=== PATIENT | female | born 1990 ===

== ENCOUNTER → 2024-04-13 10:38 | Outpatient (AMB) | payer OTHER, SELFPAY ==
--- NOTE | 2024-04-13 10:47 | AM.OFFWIN_ITS ---
Intake Vital Signs 04/13/24 10:48 Height 5 ft 1 in Weight 142 lb 6 oz BMI 26.9 BP 100/60 Blood Pressure Location Rt brachial Position Sitting Pulse 74 Pulse Source Pulse Oximeter Pulse Oximetry (%) 99 Oxygen Delivery Method Room Air Intake Visit Reasons: Would like to talk about possible yeast infection. Intake Note: Patient is here today for a possible yeast infection. Symptoms are burning, itch, frequency and pain on left side of pelvic. Patient Tobacco Use Status: Never used Tobacco Laundry Housekeeping Aide Required: No Night Monitor: Not Required per policy Accompanied by: Self / Same As Patient Allergies No Known Allergies Allergy (Verified 04/13/24 11:10) Medication List - Last Reconciled 04/13/24 by Rocio Noel, [facility]- albuterol sulfate 90 mcg/actuation 1 puff inhalation ONCE PRN budesonide-formoterol 80-4.5 mcg/actuation (Symbicort) 2 inhalations inhalation DAILY Do you need a note to return to daycare/school/sports/work: No HPI HPI Comments History of Present Illness Details 33 y/o F here today w/ concern for yeast infection Sx started this after completion of last menses. Severe Itching, burning pain in LLQ, Mild white discharge, nonodorous, vaginal tissue pain & inflammation Reports normal urination Denies fever, chills, hematuria, abt use, diabetes. LMP 1 week ago, no chance for . Last yeast infection about 5-6 months ago. Treated w/ vaginal supp with + effect in [place]. Active w/ PCP Connie Sheldon. Exam: Awake alert oriented, no acute distress Mucous membranes moist Regular rate and rhythm No CVAT bilat Mild tenderness over left lower quadrant with deep palpation without rebound Plan: Unable to produce urine at time of visit. She is not worried about UTI. Declines exam or BV swab. Active w/ COMMISSIONED FIRE OFFICER, first appt 05/02/24 Empirically tx for yeast w/ fluconazole x 2, external cortisone for relief Advised that if her symptoms persist after this treatment, she needs to follow up with design printer balloon and or her primary care. This note is constructed using voice recognition software. While every effort has been made to ensure accuracy in patient financial specialist, still errors may have been included Sometimes, these errors may affect the content or meaning of the given sentence . PFSH Social History Patient Tobacco Use Status: Never used Tobacco Physical Exam Vital Signs: Last Vital Signs Pulse 74 04/13/24 10:48 BP 100/60 04/13/24 10:48 Pulse Ox 99 04/13/24 10:48 Oxygen Delivery Method Room Air 04/13/24 10:48 BMI result Body Mass Index 26.9 Assessment & Plan Assessment & Plan (1) Vaginal itching: Code(s): N89.8 - Other specified noninflammatory disorders of vagina Plan: . (2) Left lower quadrant pain: Code(s): R10.32 - Left lower quadrant pain Plan: . (3) Yeast infection of the vagina: Code(s): B37.31 - Acute candidiasis of vulva and vagina Plan: . Medications: New fluconazole take 1 tab day 1, repeat second dose on day 3 150 mg PO Q3D 2 tabs 0RF hydrocortisone 1% (Monistat Care (hydrocortisone)) 1 appl topical TID PRN 28.4 grams 0RF skin irritation Coding Level of Care Code Est Pt Level 3 (03754) Diagnoses Vaginal itching N89.8 Left lower quadrant pain R10.32 Yeast infection of the vagina B37.31
[2024-04-13 10:48] VITALS: BP 100/60; PULSE 74; O2SAT 99; BMI 26.9
== END ==
PROVIDERS: PCP Nurse Practitioner Family; Visit Provider Nurse Practitioner Family
DX: N89.8 Other specified noninflammatory disorders of vagina (principal); R10.32 Left lower quadrant pain; B37.31 Acute candidiasis of vulva and vagina
CPT/HCPCS: 99213

== ENCOUNTER 2024-05-28 22:11 | Emergency (ER) | payer OTHER, SELFPAY ==
[2024-05-28 22:23] VITALS: BP 123/78; PULSE 61; RESP 16; TEMP 36.5; O2SAT 100; BMI 24.2
[2024-05-28 22:48] LABS: MANUAL DIFF FLAG NO
[2024-05-28 22:50] LABS: Appearance Urine Cloudy; Color Urine Dark Yellow; Glucose Urine UA Negative (Negative); Leukocyte Esterase Urine Small (1+) (Negative); Nitrite Urine Negative (Negative); Specific Gravity - Urine >= 1.030 (1.005-1.025); UMIC TRIGGER UACC YES; Urine Blood Negative (Negative); Urine Ketones >=160 mg/dL (Negative); Urine Protein 30 (1+) mg/dL (Neg-Trace)
[2024-05-28 22:51] LABS: Basophils Absolute Auto 0.1 X10*3/uL (0.0-0.2); Basophils Percent Auto 0.5 % (0-2); Eosinophils Absolute Auto 0.2 X10*3/uL (0.0-0.4); Eosinophils Percent Auto 1.3 % (0-4); Hematocrit 37.1 % (37.0-47.0); Hemoglobin 12.1 g/dl (12.0-16.0); Imm Gran Abs Auto 0.06 X10*3/uL (0.00-0.03); Imm Gran Pct Auto 0.5 % (0.0-0.4); Lymphocytes Absolute Auto 2.2 X10*3/uL (1.2-4.9); Lymphocytes Percent Auto 18.9 % (20-40); Mean Corpuscular HGB Conc 32.6 g/dl (31.0-35.0); Mean Platelet Volume 10.6 fL (9.4-12.3); Monocytes Absolute Auto 0.9 X10*3/uL (0.1-1.2); Monocytes Percent Auto 7.4 % (2-11); Neutrophils Absolute Auto 8.3 x10*3/uL (2.0-8.3); Neutrophils Percent Auto 71.4 % (45-73); Platelet Count 364 X10*3/uL (160-400); Red Blood Count 6.04 X10*6/uL (4.20-5.50); White Blood Count 11.7 X10*3/uL (4.8-10.8)
[2024-05-28 22:52] LABS: Mean Corpuscular Volume 61.4 fL (80.0-98.0)
[2024-05-28 23:00] LABS: Bacteria Urine 4+ (None Seen); Hyaline Casts Urine 0-2 /LPF (0-2); RBC Urine 0-2 /HPF (0-2); UACC Culture Trigger YES; WBC Urine 0-5 /HPF (0-5)
[2024-05-28 23:08] LABS: Anion Gap 14 (12-20); Blood Urea Nitrogen 11 mg/dL (9-16); Calcium 9.9 mg/dL (8.4-10.2); Carbon Dioxide 21 mmol/L (22-29); Chloride 105 mmol/L (96-108); Creatinine Clr Calc Pharmacy 98.9; Estimated Glomerular Filt Rate > 60; Glucose Random 81 mg/dL (60-115); Potassium 3.8 mmol/L (3.3-5.1); Sodium 136 mmol/L (135-145)
[2024-05-28 23:28] LABS: HCG Quantitative 155459 mIU/mL
--- NOTE | 2024-05-29 00:36 | ED.GENADULT ---
HPI - General Adult General Chief complaint: Nausea/Vomiting/Diarrhea Stated complaint: vomiting 8 wks Time Seen by Provider: 05/29/24 00:36 History of Present Illness ED Provider: Josh PRITCHARD narrative: The patient is a 33-year-old female who is with her 1st . She estimates she is approximately 7 weeks . She is getting her OBGYN care through a [facility] practice in [place]. She says that she has had a lot of nausea associated with the and was originally prescribed doxylamine and pyridoxine. Over the last few days her symptoms have gotten worse. She has had increased nausea and vomiting over the last 3 or 4 days. She complains of epigastric discomfort and some chest discomfort that she attributes to the vomiting. No fever. no lower abdominal pain or concerns about the otherwise. Related Data Home Medications ?Medication ?Instructions ?Recorded ?Confirmed albuterol sulfate 90 mcg/actuation 1 puff inhalation ONCE PRN 04/13/24 04/13/24 aerosol inhaler budesonide-formoterol HFA 80 2 inh inhalation DAILY 04/13/24 04/13/24 mcg-4.5 mcg/actuation aerosol inhaler (Symbicort) Previous Rx's ?Medication ?Instructions ?Recorded fluconazole 150 mg tablet 150 mg PO Q3D 2 doses #2 tabs 04/13/24 hydrocortisone 1 % topical cream 1 appl topical TID PRN skin 04/13/24 (Monistat Care (hydrocortisone)) irritation #28.4 grams metoclopramide HCl 10 mg tablet 10 mg PO Q6H PRN nausea and 05/29/24 vomiting #10 tabs Allergies Allergy/AdvReac Type Severity Reaction Status Date / Time No Known Allergies Allergy Verified 05/28/24 22:25 Review of Systems Review of Systems: Yes all other systems are reviewed and are negative PMFSH Social History Social History Patient Tobacco Use Status: Never used Tobacco Smoked in Last 30 Days: No Use of substances other than those prescribed or required for medical reasons: No Advance Directives: No Patient : Yes Physical Exam ED Vital Signs: Vital Signs - 24 hr 05/28/24 22:23 05/29/24 02:41 05/29/24 02:43 Temperature 97.7 F 98.9 F 98.9 F Pulse Rate 61 91 91 Respiratory Rate 16 16 16 Blood Pressure 123/78 100/60 100/60 Pulse Oximetry 100 99 99 Oxygen Delivery Method Room Air Room Air Room Air BMI result Body Mass Index 24.2 Const Other: The patient is awake and alert. She looks somewhat pale and mildly unwell but not in distress. HENMT Other: Face is symmetrical. Mucous membranes Do not seem significantly dry. Eyes General: appearance normal, both eyes and all related structures Neck Other: Moving her neck easily. Resp Effort & Inspection: normal respiratory effort Auscultation: clear to auscultation bilaterally Cardio Rate: regular rate Rhythm: regular rhythm Heart sounds: S1 normal heart sound present and S2 normal heart sound present GI Other: The abdomen is flat and soft. There is some mild epigastric tenderness but no other significant abdominal tenderness. No lower abdominal tenderness. Skin Other: Skin is pale and dry. Neuro Other: The patient is awake alert with normal mental status. Cranial nerves grossly intact. She moves her extremities normally. She seems neurologically intact. Extrem Other: No peripheral edema Medications Administered Discontinued Medications Generic Name Dose Route Start Last Admin Trade Name Freq PRN Reason Stop Dose Admin Diphenhydramine HCl 25 mg 05/29/24 00:40 05/29/24 01:02 Diphenhydramine Hcl 50 Mg/Ml Vial IVPUSH 05/29/24 00:41 25 mg ONCE ONE Administration Sodium Chloride 1,000 mls @ 999 mls/hr 05/29/24 00:45 05/29/24 02:06 Ns IV 05/29/24 01:45 Infused .Q1H1M SUSANNA Infusion Metoclopramide HCl 10 mg 05/29/24 00:40 05/29/24 01:02 Metoclopramide Hcl 10 Mg/2 Ml Vial IVPUSH 05/29/24 00:41 10 mg ONCE ONE Administration Medical Decision Making Medical Decision Making [facility] Narrative: the patient is a 33-year-old female who is with her 1st . She reports that she is approximately 7 weeks . She has her OB care through a [facility] [place] practice in [place]. She has had problems with nausea and indicates that she has been advised to use doxylamine and pyridoxine and most recently ondansetron. Despite these medications she has had worsening nausea over the last few days and came to the emergency room. she describes some epigastric discomfort and chest discomfort that she attributes to the vomiting. She denies any lower abdominal discomfort or any significant vaginal discharge. Clinically this seems to be a case of associated nausea vomiting. Her labs are unremarkable. Her beta hCG is 155,00. her history does not suggest a likely threatened miscarriage or ectopic . Her urinalysis is mildly abnormal but without distinct symptoms of a UTI I would wait for urine culture before treatment. The patient was treated with IV fluids, diphenhydramine, and metoclopramide. She felt better. She was at the tolerate oral intake. She will be discharged with recommendations to use diphenhydramine or dimenhydrinate [id number]. I have also provided a prescription for metoclopramide if necessary. She has an appointment with her obstetrical provider in 2 days. Lab Data 05/28/24 22:40 05/28/24 22:40 Labs: Lab Results 05/28/24 05/28/24 Range/Units 22:40 22:43 WBC 11.7 H (4.8-10.8) X10*3/uL RBC 6.04 H (4.20-5.50) X10*6/uL Hgb 12.1 (12.0-16.0) g/dl Hct 37.1 (37.0-47.0) % MCV 61.4 L (80.0-98.0) fL MCH 20.0 L (27.0-33.0) pg MCHC 32.6 (31.0-35.0) g/dl RDW 18.0 H (11.0-16.0) % Plt Count 364 (160-400) X10*3/uL MPV 10.6 (9.4-12.3) fL Immature Gran % (Auto) 0.5 H (0.0-0.4) % Neut % (Auto) 71.4 (45-73) % Lymph % (Auto) 18.9 L (20-40) % [place] % (Auto) 7.4 (2-11) % Eos % (Auto) 1.3 (0-4) % Baso % (Auto) 0.5 (0-2) % Lymph # (Auto) 2.2 (1.2-4.9) X10*3/uL [place] # (Auto) 0.9 (0.1-1.2) X10*3/uL Eos # (Auto) 0.2 (0.0-0.4) X10*3/uL Baso # (Auto) 0.1 (0.0-0.2) X10*3/uL Abs Immat Gran (auto) 0.06 H (0.00-0.03) X10*3/uL Absolute Neuts (auto) 8.3 (2.0-8.3) x10*3/uL Absolute Nucleated RBC 0.000 (0.0-0.012) X10*3/uL Nucleated RBC % (auto) 0.0 (0.0-0.2) /100WBC Sodium 136 (135-145) mmol/L Potassium 3.8 (3.3-5.1) mmol/L Chloride 105 (96-108) mmol/L Carbon Dioxide 21 L (22-29) mmol/L Anion Gap 14 (12-20) BUN 11 (9-16) mg/dL Creatinine 0.64 (0.5-1.4) mg/dL Estim Creat Clear Calc 98.9 Estimated GFR > 60 Random Glucose 81 (60-115) mg/dL Calcium 9.9 (8.4-10.2) mg/dL Beta HCG, Quant 953603 mIU/mL Urine Color Dark Yellow Urine Appearance Cloudy Urine pH 6.0 (5.0-9.0) Ur Specific [place] >= 1.030 H (1.005-1.025) Urine Protein 30 (1+) H (Neg-Trace) mg/dL Urine Glucose (UA) Negative (Negative) mg/dL Urine Ketones >=160 (Negative) mg/dL Urine Blood Negative (Negative) Urine Nitrite Negative (Negative) Ur Leukocyte Esterase Small (1+) H (Negative) Urine RBC 0-2 (0-2) /HPF Urine WBC 0-5 (0-5) /HPF Ur Squamous Epith Cells 6-10 (0-2) /HPF Urine Bacteria 4+ (None Seen) Hyaline Casts 0-2 (0-2) /LPF Discharge Plan Discharge Clinical Impression: related nausea and vomiting, antepartum, 7 weeks gestation of Patient Disposition: Home, Self-Care Instructions: Nausea and Vomiting in (ED) Additional Instructions: To try to manage any ongoing nausea you may purchase [id number]-[id number] medications that may be helpful. Dramamine (dimenhydrinate) can be helpful. A similar medication is diphenhydramine (Benadryl). Both of these medications are considered safe in . You may try 1 or the other. These medications may make you sleepy. I would start with 25 mg of either of these medications to see if they are helpful. I have also sent a prescription for a different nausea medication, metoclopramide which you may use if you do not feel that Dramamine or Benadryl is helpful. Please keep your obstetrical appointment on Thursday as scheduled. You may discuss these symptoms with your obstetrical provider. Return to the emergency room if significantly worse. Prescriptions: New metoclopramide HCl 10 mg tablet 10 mg PO Q6H PRN (Reason: nausea and vomiting) Qty: 10 0RF No Action budesonide-formoterol [Symbicort] 80-4.5 mcg/actuation HFA aerosol inhaler 2 inh inhalation DAILY albuterol sulfate 90 mcg/actuation HFA aerosol inhaler 1 puff inhalation ONCE PRN fluconazole 150 mg tablet 150 mg PO Q3D Qty: 2 0RF Rx Instructions: take 1 tab day 1, repeat second dose on day 3 hydrocortisone [Monistat Care (hydrocortisone)] 1 % cream 1 appl topical TID PRN (Reason: skin irritation) Qty: 28.4 0RF Interventions: ED Discharge Assessment Last Done: 05/29/24 02:43 Discharge Date/Time: 05/29/24 02:43 Print Language: Maltese
[2024-05-29] MEDS: diphenhydrAMINE HCL 50 MG/ML VIAL 25 MG IVPUSH (01:02)
[2024-05-29] MEDS: 0.9 % Sodium Chloride 1,000 ML 999 ML IV (01:02)
[2024-05-29] MEDS: Metoclopramide HCl 10 MG/2 ML VIAL IVPUSH (01:02)
--- NOTE | 2024-05-29 01:09 | PC.NURSE ---
this rn assumed care of pt, pt a&ox4, respirations even and unlabored. pt reporting onset of nausea and vomiting x4 days, reports being 7 weeks at this time. pt reports being seen by OB and given zofran which has not allowed any relief.
--- NOTE | 2024-05-29 01:52 | PC.NURSE ---
22G placed in right hand, fluids administered, pt medicated per oct.
[2024-05-29 02:41] VITALS: BP 100/60; PULSE 91; RESP 16; TEMP 37.2; O2SAT 99
[2024-05-29 02:43] VITALS: BP 100/60; PULSE 91; RESP 16; TEMP 37.2; O2SAT 99
== END 2024-05-29 02:43 | disposition home or self-care (01) ==
PROVIDERS: Emergency Provider Emergency Medicine; PCP Nurse Practitioner Family
DX: O26.891 Other specified pregnancy related conditions, first trimester (principal); R11.2 Nausea with vomiting, unspecified; Z3A.01 Less than 8 weeks gestation of pregnancy
CPT/HCPCS: 36415; 80048; 81001; 84702; 85025; 87086; 96361; 96374; 96375; 99284; J1200; J2765

== ENCOUNTER 2025-01-03 14:54 | Outpatient (AMB) | payer OTHER, SELFPAY ==
--- NOTE | 2025-01-03 14:57 | A.OFFPC_ITS ---
Vital Signs 01/03/25 14:59 Height 5 ft 0.63 in Weight 142 lb 1 oz BMI 27.2 BP 90/72 Blood Pressure Location Rt brachial Position Sitting Respiration 12 Pulse 69 Pulse Source Pulse Oximeter Pulse Oximetry (%) 99 Oxygen Delivery Method Room Air Intake Visit Reasons: Pls keep appt -est care Intake Note: New patient visit Reservoir Engineering Manager Required: Yes Reservoir Engineering Manager Language: Croatian Reservoir Engineering Manager Name: Alysa [id number] Accompanied by: Child Allergies No Known Allergies Allergy (Verified 01/03/25 14:57) Tobacco use date assessed: 01/03/25 Dental Screening Dental Screen Date: 01/03/25 Did you have a dental visit in the last 12 months?: No Did you have a dental problem in the last 6 months where you did not have access to dental care?: No Was dental information given to patient?: Patient declined HPI HPI Comments History of Present Illness Details 33 y/o female with a past medical histor y of asthma, Transferring from Has one month old premature child-born at 33 weeks. Things are going well. She was anemic during the did not have repeat. Continues to have frequent urge to urinate, says that glucose was normal during . She did have a yeast infection in the fall. She denies pruritus. She does endorse lower abdominal discomfort. Endorses thoracic back pain after standing for long periods of time, cooking etc. 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 ROS see HPI PHYSICAL EXAM: GENERAL: Alert and oriented x 3. NAD EYES: EOMI. Anicteric. HENT: Moist mucous membranes. No scleral icterus. No cervical lymphadenopathy. LUNGS: Clear to auscultation bilaterally. CARDIOVASCULAR: Regular rate and rhythm. No murmur. No JVD. ABDOMEN: Soft, non-tender +bs EXTREMITIES: No edema. Non-tender. SKIN: No rashes or lesions. Warm. NEUROLOGIC: No focal neurological deficits. CN II-XII grossly intact PSYCHIATRIC: Cooperative. Appropriate mood and affect [facility] Surgical History (Updated 01/03/25 @ 16:23 by Crys Hernandez CMA) No pertinent past surgical history Family History (Updated 01/03/25 @ 16:23 by Crys Hernandez CMA) Father HTN (hypertension) Social History (Updated 01/03/25 @ 16:25 by Crys Hernandez CMA) Housing: Apartment Alcohol intake: never Patient Tobacco Use Status: Never used Tobacco e-Cigarette/Vaping Use: Never Used Second Hand Smoke Exposure: No Use of substances other than those prescribed or required for medical reasons: No service: No Current occupational status: unemployed Cognitive needs: No Hearing needs: No Vision needs: No Questionnaire PHQ-9 Over the last 2 weeks, how often have you been bothered by any of the following problems? 1. Little interest or pleasure in doing things: not at all 2. Feeling down, depressed, or hopeless: not at all 3. Trouble falling or staying asleep, or sleeping too much: not at all 4. Feeling tired or having little energy: several days 5. Poor appetite or overeating: not at all 6. Feeling bad about yourself - or that you are a failure or have let yourself or your family down: not at all 7. Trouble concentrating on things, such as reading the newspaper or watching television: not at all 8. Moving or speaking so slowly that other people could have noticed. Or the opposite - being so fidgety or restless that you have been moving around a lot more than usual: not at all 9. Thoughts that you would be better off or of hurting yourself in some way: not at all Total score: 1 Depression Screening Interpretation: Negative Depression Screening Done: Yes 20380 - PHQ-9 Billing: Yes Source: Developed by Drs. Kaushal Aguirre, Alesia Paulino, Jayant Iglesias and colleagues, with an educational rossy from [employer]. Thrive Questionnaire Date Thrive assessed: 01/03/25 I am a: Patient What is your living situation today?: I have a steady place to live Within the past 12 months, did the food you bought not last and you didn't have the money to get more?: Never true Within the past 12 months, did you worry whether your food would run out before you got money to buy more?: Never true Do you have trouble paying for medicines?: No Do you have trouble getting transportation to medical appointments?: No Do you have trouble paying your heating and electricity bill?: No Do you have trouble taking care of your child, family member or friend?: No Do you have trouble with day-to-day activities such as bathing, preparing meals, shopping, managing finances, etc.?: No Are you currently unemployed and looking for a job?: No Are you interested in more education?: No Please select the resources that you would like help with: None Currently or been in a relationship where the following occur: No concerns reported THRIVE Score: 0 AUDIT C Alcohol Use Questionnaire (AUDIT-C) 1. How often do you have a drink containing alcohol?: Never 3. How often do you have six or more drinks on one occasion?: Never Total Score: 0 ONEL-7 AMB Questionnaire ONEL-7 Date ONEL - 7 assessed: 01/03/25 Feeling nervous, anxious, or on edge: 0 = Not at all Not being able to stop or control worryin = Not at all Worrying too much about different things: 0 = Not at all Trouble relaxin = Not at all Being so restless that it is hard to sit still: 0 = Not at all Becoming easily annoyed or irritable: 0 = Not at all Source: Developed by Drs. Kaushal Aguirre, Alesia Paulino, Jayant Iglesias and colleagues, with an educational rossy from [employer]. ONEL-7 Assessment Billing ONEL-7 Assessment Tool: ONEL-7 Assessment 93821 ACT Questionnaire In the past 4 weeks, how much of the time did your asthma keep you from getting as much done at work, school or at home?: None of the time During the past 4 weeks, how often have you had shortness of breath?: Not at all During the past 4 weeks, how often did your asthma symptoms wake you up at night or earlier than usual in the morning?: Once or twice per week During the past 4 weeks, how often have you had to use your rescue inhaler or nebulizer medication?: Once a week or less How would you rate your asthma control during the past 4 weeks?: Completely controlled ACT Interpretation: Positive Score: 23 Physical exam (Primary Care) Vital Signs: Last Vital Signs Pulse 69 01/03/25 14:59 Resp 12 01/03/25 14:59 BP 90/72 01/03/25 14:59 Pulse Ox 99 01/03/25 14:59 Oxygen Delivery Method Room Air 01/03/25 14:59 BMI result Body Mass Index 27.2 Tobacco/Smoking Status: Tobacco use Status Tobacco use date assessed 01/03/25 01/03/25 15:03 Patient Tobacco Use Status Never used Tobacco 01/03/25 15:03 e-Cigarette/Vaping Use Never Used 01/03/25 15:03 PHQ-9: PHQ-9 Score PHQ-9: Total score 1 01/03/25 16:25 Depression Screening Interpretation: Negative Thrive Assessment: Date of Thrive Assessment Date Thrive assessed 01/03/25 01/03/25 16:25 Currently or been in a relationship where the following occur: No concerns reported Coding Level of Care Code New Pt Level 4 (09117) Diagnoses Encounter to establish care Z76.89 Moderate persistent asthma, unspecified whether complicated J45.40 Asthma complication type: unspecified Asthma persistence: persistent Asthma severity: moderate Additional Codes Asthma Control Questionnaire - ACT Interpretation: Positive ([id number]) ONEL-7 Assessment Billing - ONEL-7 Assessment Tool: ONEL-7 Assessment 06232 ([id number]) PHQ-9 - 02748 - PHQ-9 Billing: Yes ([id number]) Assessment & Plan Assessment & Plan (1) Encounter to establish care: Code(s): Z76.89 - Persons encountering health services in other specified circumstances Category: Medical (2) Asthma: Code(s): J45.909 - Unspecified asthma, uncomplicated Category: Medical Qualifiers: Asthma complication type: unspecified Asthma persistence: persistent Asthma severity: moderate Qualified Code(s): J45.40 - Moderate persistent asthma, uncomplicated Plan 34 year old to establish care Past medical, surgical, social reviewed Asthma is stable. Seasonably needs symbicort Can try flexeril prn Labs ordered Orders: Orders TSH reflex Free T4 Today D64.9 - Anemia, unspecified, J45.40 - Moderate persistent asthma, uncomplicated, Z13.220 - Encounter for screening for lipoid disorders, Z13.228 - Encounter for screening for other metabolic disorders Hemoglobin A1c Today D64.9 - Anemia, unspecified, J45.40 - Moderate persistent asthma, uncomplicated, Z13.220 - Encounter for screening for lipoid disorders, Z13.228 - Encounter for screening for other metabolic disorders Lipid Panel Today D64.9 - Anemia, unspecified, J45.40 - Moderate persistent asthma, uncomplicated, Z13.220 - Encounter for screening for lipoid disorders, Z13.228 - Encounter for screening for other metabolic disorders IRON PROFILE Today D64.9 - Anemia, unspecified, J45.40 - Moderate persistent asthma, uncomplicated, Z13.220 - Encounter for screening for lipoid disorders, Z13.228 - Encounter for screening for other metabolic disorders Hemoglobin Electrophoresis Today D64.9 - Anemia, unspecified, J45.40 - Moderate persistent asthma, uncomplicated, Z13.220 - Encounter for screening for lipoid disorders, Z13.228 - Encounter for screening for other metabolic disorders Bacterial Vaginosis Panel Today R35.89 - Other polyuria renal BI Today N30.90 - Cystitis, unspecified without hematuria, R10.9 - Unspecified abdominal pain Complete Blood Count Auto Diff Today D64.9 - Anemia, unspecified, J45.40 - Moderate persistent asthma, uncomplicated, Z13.220 - Encounter for screening for lipoid disorders, Z13.228 - Encounter for screening for other metabolic disorders Comprehensive Met. Panel Today D64.9 - Anemia, unspecified, J45.40 - Moderate persistent asthma, uncomplicated, Z13.220 - Encounter for screening for lipoid disorders, Z13.228 - Encounter for screening for other metabolic disorders UA CC w/rflx Micro + Cult Today R35.89 - Other polyuria Medications: New cyclobenzaprine 5 - 10 mg (1 - 2 x 5 mg) PO BEDTIME PRN 60 tabs 0RF muscle spasm
[2025-01-03 14:59] VITALS: BP 90/72; PULSE 69; RESP 12; O2SAT 99; BMI 27.2
== END 2025-01-03 15:50 | disposition home or self-care (01) ==
LOC: HO.HMCFM 14:54
PROVIDERS: PCP Internal Medicine; Visit Provider Internal Medicine
DX: Z76.89 Persons encountering health services in other specified circumstances (principal); J45.40 Moderate persistent asthma, uncomplicated

== ENCOUNTER → 2025-01-03 14:54 | Outpatient (BNVA) | payer OTHER, SELFPAY | PROVIDERS: PCP Internal Medicine; Visit Provider Internal Medicine | DX: Z76.89 Persons encountering health services in other specified circumstances (principal); J45.40 Moderate persistent asthma, uncomplicated | CPT/HCPCS: 96127; 96160; 99202 ==

== ENCOUNTER 2025-05-08 15:00 | Outpatient (REF) | payer OTHER, SELFPAY ==
[2025-05-08 18:02] LABS: MANUAL DIFF FLAG NO
[2025-05-08 18:18] LABS: Hematocrit 36.3 % (37.0-47.0); Hemoglobin 11.5 g/dl (12.0-16.0); Imm Gran Abs Auto 0.05 X10*3/uL (0.00-0.03); Imm Gran Pct Auto 0.5 % (0.0-0.4); Lymphocytes Absolute Auto 2.6 X10*3/uL (1.2-4.9); Mean Corpuscular HGB Conc 31.7 g/dl (31.0-35.0); Mean Corpuscular Hemoglobin 19.4 pg (27.0-33.0); NRBC Abs Auto 0.000 X10*3/uL (0.0-0.012); NRBC Pct Auto 0.0 /100WBC (0.0-0.2); Platelet Count 344 X10*3/uL (160-400); Red Blood Count 5.93 X10*6/uL (4.20-5.50); White Blood Count 9.7 X10*3/uL (4.8-10.8)
[2025-05-08 18:19] LABS: Mean Corpuscular Volume 61.2 fL (80.0-98.0)
[2025-05-08 18:40] LABS: Alanine Aminotransferase 39 U/L (0-31); Albumin Level 4.2 g/dL (3.5-5.0); Alkaline Phosphatase 83 U/L (39-117); Anion Gap 11 (12-20); Aspartate Amino Transferase 33 U/L (5-31); Blood Urea Nitrogen 16 mg/dL (9-16); Calcium 9.1 mg/dL (8.4-10.2); Carbon Dioxide 25 mmol/L (22-29); Chloride 105 mmol/L (96-108); Cholesterol 177 mg/dL (<200); Estimated Glomerular Filt Rate > 60; HDL Cholesterol 38 mg/dL (>40); Iron 56 mcg/dL (30-160); Percent Iron Saturation 16 % (15-50); Potassium 3.6 mmol/L (3.3-5.1); Sodium 137 mmol/L (135-145); Total Iron Binding Capacity 353 mcg/dL (228-428); Total Protein 7.2 g/dL (6.5-8.0); Triglycerides 212 mg/dL (<150); Unsaturated Iron Binding 297 ug/dL
[2025-05-09 07:26] LABS: Hemoglobin A1C 114.0962 umol/L; Total Hemoglobin (HGBA1C) 3012.3533 umol/L
[2025-05-11 07:13] LABS: Hematocrit 38.2 % (35.0-45.0); Hemoglobin 11.6 g/dL (11.7-15.5); MCH 19.6 pg (27.0-33.0); MCV 64.6 fL (80.0-100.0); RBC 5.91 Million/uL (3.80-5.10); RDW 19.3 % (11.0-15.0)
== END 2025-05-08 15:01 | disposition home or self-care (01) ==
LOC: HO.WFDLDS 15:00
PROVIDERS: Visit Provider Internal Medicine
DX: Z13.228 Encounter for screening for other metabolic disorders (principal); Z13.220 Encounter for screening for lipoid disorders; J45.40 Moderate persistent asthma, uncomplicated; D64.9 Anemia, unspecified
CPT/HCPCS: 36415; 80053; 80061; 83020; 83036; 83540; 84443; 85014; 85018; 85025; 85041

== ENCOUNTER 2025-05-12 18:38 | Outpatient (REF) | payer OTHER, SELFPAY ==
[2025-05-12 19:21] LABS: Appearance Urine Clear; Glucose Urine UA Negative (Negative); PH 5.5 (5.0-9.0); Specific Gravity - Urine 1.020 (1.005-1.025); UMIC TRIGGER UACC YES
[2025-05-12 20:06] LABS: UACC Culture Trigger YES
[2025-05-13 02:21] LABS: Bacterial Vaginosis PCR NEGATIVE (Negative); Candida Group PCR NOT DETECTED (Not Detect); Candida glab krusei PCR NOT DETECTED (Not Detect); Trichomonas vaginalis PCR NOT DETECTED (Not Detect)
== END 2025-05-12 18:39 | disposition home or self-care (01) ==
LOC: HO.LNP 18:38
PROVIDERS: Visit Provider Internal Medicine
DX: Z20.2 Contact with and (suspected) exposure to infections with a predominantly sexual mode of transmission (principal); R35.89 Other polyuria
CPT/HCPCS: 81001; 81003; 81515; 87086

== ENCOUNTER 2025-06-20 11:46 | Outpatient (AMB) | payer OTHER, SELFPAY ==
--- NOTE | 2025-06-20 11:48 | MHC.PC.OV ---
Vital Signs 06/20/25 11:52 Height 5 ft 0.63 in Weight 156 lb 6 oz BMI 29.9 BP 105/66 Blood Pressure Location Rt brachial Position Sitting Respiration 12 Pulse 70 Pulse Source Pulse Oximeter Temp 97.2 F Temp Source Oral Pulse Oximetry (%) 99 Oxygen Delivery Method Room Air Intake Visit Reasons: hard time using/moving fingers Intake Note: Patient c/o hard time moving fingers and using fingers painful x 1months. Patient also c/o joints px on both knees. Patient is having acid reflux and burning in stomach Community Outreach Advocate Required: No Allergies No Known Allergies Allergy (Verified 06/20/25 11:49) Tobacco use date assessed: 01/03/25 Dental Screening Dental Screen Date: 01/03/25 HPI HPI Comments History of Present Illness Details 34 y/o female with a past medical history of asthma, back pain presenting for new concern For the past month has been having pain in the bilateral ring fingers with triggering. Worse in morning. She also has developed bilateral knee pain, bilateral thigh pain and bilateral heel pain. Her back-thoracic and lumbar spine have increased pain levels as well. Foot pain worse on first steps. There is no pain in the mid foot. Asthma-requests albuterol refill Reports frequent heartburn, reflux, increased. She tried one week of prilosec or similar without resolution. 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 ROS see HPI PHYSICAL EXAM: GENERAL: Alert and oriented x 3. NAD EYES: EOMI. Anicteric. HENT: Moist mucous membranes. No scleral icterus. No cervical lymphadenopathy. LUNGS: Clear to auscultation bilaterally. CARDIOVASCULAR: Regular rate and rhythm. No murmur. No JVD. ABDOMEN: Soft, non-tender +bs EXTREMITIES: No edema. Non-tender. SKIN: No rashes or lesions. Warm. NEUROLOGIC: No focal neurological deficits. CN II-XII grossly intact PSYCHIATRIC: Cooperative. Appropriate mood and affect [facility] Surgical History No pertinent past surgical history Family History Father HTN (hypertension) Social History Housing: Apartment Alcohol intake: never Patient Tobacco Use Status: Never used Tobacco e-Cigarette/Vaping Use: Never Used Second Hand Smoke Exposure: No service: No Current occupational status: unemployed Cognitive needs: No Hearing needs: No Vision needs: No Questionnaire Thrive Questionnaire Date Thrive assessed: 01/03/25 ONEL-7 AMB Questionnaire ONEL-7 Date ONEL - 7 assessed: 01/03/25 Source: Developed by Drs. Kaushal Aguirre, Alesia Paulino, Jayant Iglesias and colleagues, with an educational rossy from [employer]. Physical exam (Primary Care) Vital Signs: Last Vital Signs Temp 97.2 F 06/20/25 11:52 Pulse 70 06/20/25 11:52 Resp 12 06/20/25 11:52 BP 105/66 06/20/25 11:52 Pulse Ox 99 06/20/25 11:52 Oxygen Delivery Method Room Air 06/20/25 11:52 BMI result Body Mass Index 29.9 Tobacco/Smoking Status: Tobacco use Status Tobacco use date assessed 01/03/25 06/20/25 11:50 Patient Tobacco Use Status Never used Tobacco 06/20/25 11:50 e-Cigarette/Vaping Use Never Used 06/20/25 11:50 Thrive Assessment: Date of Thrive Assessment Date Thrive assessed 01/03/25 06/20/25 11:50 Coding Level of Care Code Est Pt Level 4 (09546) Complex EM visit Add On G2211 Diagnoses Polyarthralgia M25.50 Bilateral hand pain M79.641; M79.642 Trigger ring finger, unspecified laterality M65.349 Trigger finger location: ring finger Laterality: unspecified laterality Heel pain, bilateral M79.671; M79.672 Moderate persistent asthma, unspecified whether complicated J45.40 Asthma severity: moderate Asthma persistence: persistent Asthma complication type: unspecified Assessment & Plan Assessment & Plan (1) Polyarthralgia: Code(s): M25.50 - Pain in unspecified joint Category: Medical (2) Bilateral hand pain: Code(s): M79.641 - Pain in right hand; M79.642 - Pain in left hand Category: Medical (3) Trigger finger: Code(s): M65.30 - Trigger finger, unspecified finger Category: Medical Qualifiers: Trigger finger location: ring finger Laterality: unspecified laterality Qualified Code(s): M65.349 - Trigger finger, unspecified ring finger (4) Heel pain, bilateral: Code(s): M79.671 - Pain in right foot; M79.672 - Pain in left foot Category: Medical (5) Asthma: Code(s): J45.909 - Unspecified asthma, uncomplicated Category: Medical Qualifiers: Asthma severity: moderate Asthma persistence: persistent Asthma complication type: unspecified Qualified Code(s): J45.40 - Moderate persistent asthma, uncomplicated Plan Polyarthralgia, myalgia B/L ring fnger triggering and discomfort-refer hand. xr ordered Xray, labs ordered. Refer rheumatology GERD-trial one month PPI-sent. h pylori testing. weight loss recommended. Avoid triggers. Orders: Orders Rheumatoid Factor Today M25.50 - Pain in unspecified joint, M65.30 - Trigger finger, unspecified finger Uric Acid Today M25.50 - Pain in unspecified joint, M65.30 - Trigger finger, unspecified finger Tick-borne Disease Molecular Today M25.50 - Pain in unspecified joint, M65.30 - Trigger finger, unspecified finger Lyme IgG/IgM w/reflex to WB Today M25.50 - Pain in unspecified joint, M65.30 - Trigger finger, unspecified finger XR lumbar spine 2-3V Today M25.50 - Pain in unspecified joint, M65.30 - Trigger finger, unspecified finger, M79.641 - Pain in right hand, M79.642 - Pain in left hand, M79.671 - Pain in right foot, M79.672 - Pain in left foot H pylori Ag Stool Today K21.9 - Gastro-esophageal reflux disease without esophagitis XR thoracic spine 2V Today M54.6 - Pain in thoracic spine Erythrocyte Sedimentation Rate Today M25.50 - Pain in unspecified joint, M65.30 - Trigger finger, unspecified finger Cyclic Citrullinated Peptide Today M25.50 - Pain in unspecified joint, M65.30 - Trigger finger, unspecified finger XR Hand Olivier 2V Today M25.50 - Pain in unspecified joint, M65.30 - Trigger finger, unspecified finger, M79.641 - Pain in right hand, M79.642 - Pain in left hand, M79.671 - Pain in right foot, M79.672 - Pain in left foot XR Foot Olivier 3V Today M25.50 - Pain in unspecified joint, M65.30 - Trigger finger, unspecified finger, M79.641 - Pain in right hand, M79.642 - Pain in left hand, M79.671 - Pain in right foot, M79.672 - Pain in left foot XR Knee Olivier 3V Today M25.561 - Pain in right knee, M25.562 - Pain in left knee TSH reflex Free T4 Today L85.3 - Xerosis cutis Referrals Orthopedics Referral M79.641 - Pain in right hand, M79.642 - Pain in left hand, M79.671 - Pain in right foot, M79.672 - Pain in left foot Rheumatology Referral M25.50 - Pain in unspecified joint Medications: New prednisone 40 mg (2 x 20 mg) PO DAILY 10 tabs 0RF meloxicam 15 mg PO DAILY 90 tabs 0RF albuterol sulfate 90 mcg/actuation 2 inhalations inhalation Q6H PRN 1 ea 3RF shortness of breath or wheezing triamcinolone acetonide 0.1% 1 appl topical BID 80 grams 0RF omeprazole 20 mg PO DAILY 30 caps 0RF
[2025-06-20 11:52] VITALS: BP 105/66; PULSE 70; RESP 12; TEMP 36.2; O2SAT 99; BMI 29.9
== END 2025-06-20 12:33 | disposition home or self-care (01) ==
LOC: HO.HMCFM 11:46
PROVIDERS: PCP Internal Medicine; Visit Provider Internal Medicine
DX: M25.50 Pain in unspecified joint (principal); M79.641 Pain in right hand; M79.642 Pain in left hand; M65.349 Trigger finger, unspecified ring finger; M79.671 Pain in right foot; M79.672 Pain in left foot; J45.40 Moderate persistent asthma, uncomplicated

== ENCOUNTER → 2025-06-20 11:46 | Outpatient (BNVA) | payer OTHER, SELFPAY | PROVIDERS: PCP Internal Medicine; Visit Provider Internal Medicine | DX: M79.645 Pain in left finger(s) (principal); M79.644 Pain in right finger(s); M65.341 Trigger finger, right ring finger; M65.342 Trigger finger, left ring finger; M79.671 Pain in right foot; M79.672 Pain in left foot; J45.40 Moderate persistent asthma, uncomplicated | CPT/HCPCS: 99212 ==

== ENCOUNTER 2025-06-21 15:15 | Outpatient (REF) | payer OTHER, SELFPAY ==
[2025-06-21 18:37] LABS: Uric Acid 4.7 mg/dL (2.4-5.7)
[2025-06-22 06:03] LABS: Lyme Abs Screen <0.90 index
[2025-06-22 16:18] LABS: A. Phagocytphilium DNA,RT-PCR NOT DETECTED (NOT DETECTED); Babesia Microti DNA, RT-PCR NOT DETECTED (NOT DETECTED); Borrelia Miyamotoi,DNA RT-PCR NOT DETECTED (NOT DETECTED); E.Chaffeensis DNA RT-PCR NOT DETECTED (NOT DETECTED); Lyme(Borrelia ssp)DNA RT-PCR NOT DETECTED (NOT DETECTED)
== END 2025-06-21 15:16 | disposition home or self-care (01) ==
LOC: HO.WFDLDS 15:15
PROVIDERS: Visit Provider Internal Medicine
DX: Z01.84 Encounter for antibody response examination (principal); M65.30 Trigger finger, unspecified finger; L85.3 Xerosis cutis; M25.50 Pain in unspecified joint
CPT/HCPCS: 36415; 84443; 84550; 85652; 86200; 86431; 86617; 86618; 87468; 87469; 87478; 87484; 87798

== ENCOUNTER 2025-08-09 16:22 | Outpatient (REF) | payer OTHER, SELFPAY | END 2025-08-09 16:23 | disposition home or self-care (01) | LOC: HO.LNP 16:22 | PROVIDERS: Visit Provider Internal Medicine | DX: K21.9 Gastro-esophageal reflux disease without esophagitis (principal) | CPT/HCPCS: 87338 ==